=== PATIENT | female | born 1950 | race African-American/Black ===

== ENCOUNTER 2021-03-06 08:25 | Observation (INO) | payer OTHER ==
[2021-03-06] MEDS ORDERED: MAG HYDROX/AL HYDROX/SIMETH -MYLANTA- ORAL SUSPENSION PO ONE (09:23)
[2021-03-06] MEDS ORDERED: METOCLOPRAMIDE HCL INJECTION 10 MG/2 ML VIAL IVPUSH ONE (09:23)
[2021-03-06] MEDS ORDERED: MAG HYDROX/AL HYDROX/SIMETH 30 ML UNIT-DOSE CUP ONE (09:41)
[2021-03-06] MEDS ORDERED: METOCLOPRAMIDE HCL INJECTION 10 MG/2 ML VIAL ONE (09:41)
[2021-03-06 09:42] LABS: BASO % 0.3 % (0-2.0); EOS % 4.8 % (0-4.5); HEMATOCRIT 42.6 % (32.4-45.2); HEMOGLOBIN 14.7 GM/dL (10.7-15.3); LYMPH % 43.5 % (8-40); MCH 33.2 pg (25.7-33.7); MCHC 34.5 g/dl (32.0-36.0); MEAN CELL VOLUME 96.3 fl (80-96); MONO % 8.5 % (3.8-10.2); NEUT % 42.9 % (42.8-82.8); PLATELET COUNT 297 K/MM3 (134-434); RBC 4.42 M/mm3 (3.60-5.2); RDW 12.9 % (11.6-15.6); WHITE BLOOD COUNT 5.6 K/mm3 (4.0-10.0)
[2021-03-06 10:07] LABS: CHLORIDE 105 mmol/L (98-107); SODIUM 139 mmol/L (136-145)
[2021-03-06 10:09] LABS: ANION GAP 8 MMOL/L (8-16); CALCIUM 9.2 mg/dL (8.5-10.1); CO2 26 mmol/L (21-32); GLUCOSE,RANDOM 215 mg/dL (74-106)
[2021-03-06 10:12] LABS: CREATININE 1.1 mg/dL (0.55-1.3); SGPT/ALT 14 U/L (13-61)
[2021-03-06 10:13] LABS: SGOT/AST 31 U/L (15-37)
[2021-03-06 10:14] LABS: BILIRUBIN,TOTAL 1.8 mg/dL (0.2-1); TOT PROT 8.2 g/dl (6.4-8.2)
[2021-03-06 10:15] LABS: ALK PHOS 108 U/L (45-117)
[2021-03-06 10:17] LABS: N-TERMINAL BNP 86.7 pg/ml (5-125)
[2021-03-06] MEDS: ASPIRIN COATED 81 MG TABLET.EC PO SCH (15:05)
[2021-03-06] MEDS ORDERED: ASPIRIN COATED 81 MG TABLET.EC ONE (15:12)
[2021-03-06 20:02] LABS: URINE APPEARANCE CLEAR; URINE BILIRUBIN NEGATIVE (NEGATIVE); URINE COLOR YELLOW; URINE GLUCOSE (UA) 3+ (NEGATIVE); URINE KETONE TRACE (NEGATIVE); URINE LEUK ESTERASE NEGATIVE (NEGATIVE); URINE NITRITE NEGATIVE (NEGATIVE); URINE PROTEIN NEGATIVE (NEGATIVE)
[2021-03-06] MEDS ORDERED: ATORVASTATIN CA 20 MG TABLET (FP) PO SCH (22:00)
[2021-03-06 23:44] VITALS: BMI 37.5
[2021-03-07 07:06] LABS: BASO % 0.5 % (0-2.0); EOS % 5.6 % (0-4.5); HEMATOCRIT 40.2 % (32.4-45.2); HEMOGLOBIN 13.8 GM/dL (10.7-15.3); MCH 33.3 pg (25.7-33.7); MCHC 34.5 g/dl (32.0-36.0); MEAN CELL VOLUME 96.5 fl (80-96); MEAN PLT VOLUME 7.9 fl (7.5-11.1); MONO % 8.5 % (3.8-10.2); NEUT % 31.4 % (42.8-82.8); PLATELET COUNT 262 K/MM3 (134-434); RBC 4.16 M/mm3 (3.60-5.2); WHITE BLOOD COUNT 7.1 K/mm3 (4.0-10.0)
[2021-03-07 07:29] LABS: CHLORIDE 107 mmol/L (98-107); SODIUM 140 mmol/L (136-145)
[2021-03-07 07:38] LABS: ALBUMIN 3.4 g/dl (3.4-5.0); ANION GAP 3 MMOL/L (8-16); CO2 30 mmol/L (21-32)
[2021-03-07 07:39] LABS: BLOOD UREA NITROGEN 13.8 mg/dL (7-18); CALCIUM 8.7 mg/dL (8.5-10.1); GLUCOSE,RANDOM 162 mg/dL (74-106); MAGNESIUM 1.9 mg/dL (1.8-2.4)
[2021-03-07 07:41] LABS: BILIRUBIN,TOTAL 1.5 mg/dL (0.2-1); CHOLESTEROL 146 mg/dL (50-200); SGOT/AST 20 U/L (15-37)
[2021-03-07 07:42] LABS: ALK PHOS 98 U/L (45-117); HDL CHOLESTEROL 49 mg/dL (40-60); PHOSPHOROUS 3.7 mg/dL (2.5-4.9); TRIGLYCERIDES 80 mg/dL (0-150)
[2021-03-07 07:43] LABS: LDL CHOLESTEROL (ONLY SJRH) 80 mg/dL (5-100); SGPT/ALT 13 U/L (13-61); TOT PROT 7.1 g/dl (6.4-8.2)
[2021-03-07] MEDS ORDERED: MAG HYDROX/AL HYDROX/SIMETH 30 ML UNIT-DOSE CUP PO PRN (09:11)
[2021-03-07] MEDS: ASPIRIN COATED 81 MG TABLET.EC PO SCH (09:26)
[2021-03-07] MEDS ORDERED: ENOXAPARIN NA (PORCINE) 40 MG/0.4 ML DISP.SYRIN SQ SCH (10:00)
[2021-03-07] MEDS ORDERED: HYDROCHLOROTHIAZIDE 25 MG TABLET (FP) PO SCH (10:00)
[2021-03-07] MEDS ORDERED: PANTOPRAZOLE 40 MG TABLET PO SCH (10:00)
[2021-03-07 14:50] VITALS: BP 139/85; PULSE 71; TEMP 98.2
== END 2021-03-07 19:42 | disposition home or self-care (01) ==
LOC: JER 08:25 → UNDOADMOB 13:14 → JERBED 13:14 → INTOOBSV 13:14 → J4W 20:53 → JERBED 20:53 → J4W 03-07 08:40
PROVIDERS: ADMIT Internal Medicine; ATTEND Nurse Practitioner Family
PROC: 3E033GC Introduction of Other Therapeutic Substance into Peripheral Vein, Percutaneous Approach (ICD-10-PCS; principal; 2021-03-07)
DX: R00.2 Palpitations (principal); R07.89 Other chest pain; I10 Essential (primary) hypertension; R06.00 Dyspnea, unspecified; E78.5 Hyperlipidemia, unspecified; Z87.891 Personal history of nicotine dependence; E66.9 Obesity, unspecified; Z68.37 Body mass index [BMI] 37.0-37.9, adult
CPT/HCPCS: 36415; 71046-TC-FY; 80053; 80061; 81003; 82550; 82553; 82962; 83036; 83721; 83735; 83880; 84100; 84443; 84484; 85025; 93005; 93010; 93306-TC; 94761; 96374; 99282-25; C9803; G0378; U0003; U0005